=== PATIENT | male | born 1995 | race Caucasian/White ===

== ENCOUNTER 2023-12-29 22:36 | Emergency (ER) | payer OTHER ==
[~2023-12-29] VITALS: Ht 172.7 cm; Wt 118.0 kg
[2023-12-29 22:45] VITALS: O2SAT 97
[2023-12-30] MEDS: KETOROLAC 15MG/ML VIAL IM ONE (01:46)
[2023-12-30] MEDS ORDERED: CYCL5TAB MT (03:29)
[2023-12-30] MEDS ORDERED: LIDO700A15 TP (03:29)
[2023-12-30] MEDS ORDERED: NAPR-1176 MT (03:29)
[2023-12-30 03:44] VITALS: BP 147/80; PULSE 84; RESP 20; TEMP 98.5
== END 2023-12-30 04:00 | disposition home or self-care (01) ==
LOC: ER 22:36
DX: R07.81 Pleurodynia (principal); M54.6 Pain in thoracic spine
CPT/HCPCS: 99284; 71100; 72070; 96372; J1885